=== PATIENT | female | born 1970 | race African-American/Black ===

== ENCOUNTER → 2019-04-13 | Outpatient (CLI) | payer BC, OTHER ==
[2016-04-08 15:18] VITALS: BP 106/65
[~2019-04-13] MED LIST: CYAN10002 IJ; FERR325T58 PO; LISI1TAB7 PO
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
== END | disposition home or self-care (01) ==
LOC: RAD 12:06
PROVIDERS: ATTEND Family Medicine
DX: S80.02XA Contusion of left knee, initial encounter (principal); S40.012A Contusion of left shoulder, initial encounter; M25.762 Osteophyte, left knee; M25.462 Effusion, left knee; M19.012 Primary osteoarthritis, left shoulder; M17.12 Unilateral primary osteoarthritis, left knee; V89.2XXA Person injured in unspecified motor-vehicle accident, traffic, initial encounter; Y93.89 Activity, other specified; Y92.89 Other specified places as the place of occurrence of the external cause; Y99.8 Other external cause status
CPT/HCPCS: 73030; 73562

== ENCOUNTER → 2019-07-07 | Outpatient (CLI) | payer OTHER ==
[2016-04-08 15:18] VITALS: BP 106/65
[~2019-07-07] MED LIST changes: +LISI1TAB20 PO; -LISI1TAB7 PO
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
== END | disposition home or self-care (01) ==
LOC: KCIC MRI 11:46
PROVIDERS: ATTEND Orthopaedic Surgery
DX: S46.012D Strain of muscle(s) and tendon(s) of the rotator cuff of left shoulder, subsequent encounter (principal); M25.412 Effusion, left shoulder; M77.8 Other enthesopathies, not elsewhere classified; Z90.710 Acquired absence of both cervix and uterus; Z90.89 Acquired absence of other organs; X58.XXXD Exposure to other specified factors, subsequent encounter
CPT/HCPCS: 73221